=== PATIENT | male | born 1950 | race Caucasian/White ===

== ENCOUNTER 2022-08-11 12:23 | Emergency (ER) | payer OTHER, SELFPAY ==
--- NOTE | ~2022-08-11 | CT_ITS ---
EXAMINATION: CT brain wo con DATE: 08/11/2022 14:40 INDICATION: syncope, head injury . TECHNIQUE: Computed tomography (CT) of the head was performed without intravenous contrast. The mA wa s adjusted according to patient size. Iterative reconstruction technique was employed. The dose-lengt h product was 605.33 mGy-cm. COMPARISON: None. FINDINGS: No acute intracranial hemorrhage or extra-axial fluid collection. No hydrocephalus, mass, or herniation. No acute ischemic infarct. Unremarkable dural venous sinus attenuation. No acute osseous abnormality. Mild ethmoid mucosal thickening, poorly pneumatized mastoid air cells, bilateral mastoid effusions an d fluid in the right middle ear cavity, the remaining aerated spaces are clear. Mild atrophy and chronic white matter change. Atherosclerotic intracranial calcification. Bilateral l ens replacements. IMPRESSION: No acute intracranial process. Bilateral mastoid effusions. Right middle ear fluid. Correlate for cli nical findings of right otitis/otomastoiditis. Reviewed, dictated and finalized at location [facility]. SOFTWARE DEVELOPER IMPRESSION: No acute intracranial process. Bilateral mastoid effusions. Right middle ear fl uid. Correlate for clinical findings of right otitis/otomastoiditis.
--- NOTE | ~2022-08-11 | CT_ITS ---
EXAMINATION: CT abdomen pelvis w con DATE: 08/11/2022 14:40 INDICATION: Diarrhea. TECHNIQUE: Computed tomography (CT) of the abdomen and pelvis was performed with 100 CC Omnipaque 350 intravenous contrast. Automated exposure control and iterative reconstruction technique were employe d. Exam dose: 1154.52 mGy-cm total exam DLP. COMPARISON: None. FINDINGS: Minimal atelectasis at the lung bases. Normal heart size. No pericardial or pleural effusio n. Small sliding hiatal hernia. The liver, gallbladder, spleen, pancreas, and adrenal glands are unremarkable. 4 mm right renal cyst 4.5 mm upper pole left renal cyst. No urinary tract calculus or hydroureteronephrosis. Prostate enlar gement and calcification. The urinary bladder appears unremarkable. There is atherosclerotic calcification but normal caliber of the abdominal aorta and iliac arteries. No intraperitoneal or retroperitoneal or pelvic mass lesion or adenopathy or ascites. Normal appendix. Mild colon diverticulosis; no CT evidence of diverticulitis. No bowel obstruction or bowel wall thickening, pneumatosis or intraperitoneal free air. Moderately severe degenerative disc disease and mild retrolisthesis at L5-S1. Degenerative changes apophyseal joints with associated grade 1 anterolisthesis at L4-5. Severe degenerative disc disease and mild retrolisthesis at L1-2. Degenerative change of the lower thoracic spine. No suspicious osteolytic or osteoblastic lesions are noted. IMPRESSION: Normal appendix Mild diverticulosis of the colon Small sliding hiatal hernia Small renal cysts Prostate enlargement and calcification Reviewed, dictated and finalized at [facility]. Reviewed, dictated and finalized at location [facility]. RTISING SALES AGENT
--- NOTE | ~2022-08-11 | XR_ITS ---
XR chest 1V portable DATE: 08/11/2022 12:58 INDICATION: Dizziness, weakness. History of myocardial infarction. TECHNIQUE: Portable AP views on August 11, 2022 at 1255 hours COMPARISON: None FINDINGS: Normal heart size. No hilar or mediastinal enlargement. No pulmonary infiltrate or consolid ation, pleural effusion or pulmonary vascular congestion or pneumothorax. Degenerative spurring of the thoracic spine. IMPRESSION: No active cardiopulmonary disease Reviewed, dictated and finalized at location A. NE TRADER
[2022-08-11 12:27] VITALS: BP 141/67; PULSE 63; RESP 16; TEMP 36.8; O2SAT 100
--- NOTE | 2022-08-11 12:41 | ECG_ITS ---
Measurements Intervals [place] Rate: 66 P: 52 DC: 265 QRS: -82 QRSD: 97 T: 24 QT: 419 QTc: 441 Interpretive Statements SINUS RHYTHM WITH FIRST DEGREE AV BLOCK LEFTWaRD AXIS RV CONDUCTION ABNORMALITY POOR R-WAVE PROGRESSION ABNORMAL ECG NO PREVIOUS ECG AVAILABLE FOR COMPARISON Electronically Signed On 08-12-2022 7:09:14 [employer] WORK[employer] by Junior Sunshine M.D.
[2022-08-11 13:23] LABS: Basophils Percent Auto 0.3 % (0.2-1.2); Eosinophils Absolute Auto 0.1 K/mm3 (0-0.3); Eosinophils Percent Auto 0.8 % (0-4.4); Hematocrit 46.8 % (42.0-52.0); Hemoglobin 16.1 g/dL (14.0-18.0); Immature Granulocyte Absolute 0.04 K/mm3 (0.00-0.031); Immature Granulocyte Percent A 0.3 % (0-0.5); Lymphocytes Absolute Auto 1.16 K/mm3 (0.9-3.2); Lymphocytes Percent Auto 8.6 % (18.3-44.2); Mean Corpuscular HGB Conc 34.4 g/dl (32-36); Mean Corpuscular Hemoglobin 31.5 pg (26-34); Mean Corpuscular Volume 91.6 fl (80-100); Mean Platelet Volume 8.9 fl (7.4-10.4); Monocytes Percent Auto 7.2 % (2.6-8.5); Neutrophils Absolute Auto 11.2 K/mm3 (1.3-6.7); Neutrophils Percent Auto 82.8 % (45.5-73.1); Platelet Count Result 143 k/mm3 (150-375); Red Blood Count 5.11 M/mm3 (4.6-6.20); Red Cell Distribution Width 12.6 % (11.5-14.5); White Blood Count 13.6 K/mm3 (4.5-10.0)
[2022-08-11] MEDS: LACTATED RINGERS 1,000 ML 999 ML IV CONT (13:29)
[2022-08-11] MEDS: ONDANSETRON INJ 4 MG/2 ML VIAL IV PUSH (13:30)
[2022-08-11 13:33] LABS: Partial Thromboplastin Time 26.7 SECONDS (22.3-36.8); Prothrombin Time 13.1 Seconds (11.1-14.7)
[2022-08-11 13:34] LABS: Lactic Acid Reflex 1.4 mmol/L (0.7-2.0)
[2022-08-11 13:36] LABS: Alanine Aminotransferase 26 U/L (6-50); Albumin Level 4.6 g/dL (3.5-5.1); Alkaline Phosphatase 116 U/L (38-126); Anion Gap 4 mmol/L (8-16); Aspartate Amino Transferase 28 U/L (17-59); Bilirubin,Total 0.5 mg/dL (0.2-1.3); Blood Urea Nitrogen 14 mg/dL (9-20); Carbon Dioxide 29 mmol/L (22-30); Chloride 103 mmol/L (98-107); Estimated CRCL calculation 95 ml/min; Estimated Glomerular Filt Rate > 60; Glucose 114 mg/dL (65-110); Lipase 126 U/L (23-300); Magnesium 1.9 mg/dL (1.6-2.3); Potassium 3.6 mmol/L (3.4-5.0); Sodium 136 mmol/L (137-145)
--- NOTE | 2022-08-11 13:50 | ED.NAVMDI ---
HPI - Nausea/Vomiting/Diarrhea General Chief complaint: Nausea/Vomiting/Diarrhea Stated complaint: N/V/D zofran given by ems Time Seen by Provider: 08/11/22 12:32 Source: patient and RN notes reviewed Mode of arrival: EMS Limitations: no limitations History of Present Illness HPI Narrative: This is a 72 year old male with history of DM, hyperlipidemia, hypertension who presents from home for evaluation of syncope after nausea, vomiting and diarrhea. Patient's told his he felt fatigue this morning. Approximately 2 hours ago he was having bowel movement , and he developed dizziness, nausea and vomiting. He states that he has been having diarrhea afterwards. His found him on the bathroom floor because he passed out. EMS gave patient dose of zofran and patient continues to have nausea. He denies chest pain, sob. He reports some congestion. He denies history of cardiac disease or syncope. MD elicited complaint: nausea, vomiting and diarrhea Related Data Allergies Allergy/AdvReac Type Severity Reaction Status Date / Time No Known Allergies Allergy Verified 08/11/22 13:28 Review of Systems Constitutional: Constitutional: Reports weakness ENT: Reports nasal congestion Cardiovascular: Cardiovascular: Reports syncope, Denies rapid heart rate, Denies irregular heart rhythm, Denies leg edema and Denies dyspnea Respiratory: Respiratory: Denies chest congestion, Denies hemoptysis, Denies excessive phlegm production and Denies dyspnea Gastrointestinal: Gastrointestinal: Denies abdominal pain, Denies hematochezia, Reports diarrhea, Reports nausea and Reports vomiting Genitourinary: Genitourinary: Denies hematuria, Denies dysuria, Denies penile discharge and Denies testicular pain Musculoskeletal: Musculoskeletal: Denies joint swelling, Denies loss of height and Denies muscle weakness Neurologic: Reports syncope, Denies focal weakness and Denies weakness PMFSH Past Medical History Medical History (Updated 08/11/22 @ 16:40 by Geeta Franco MD) Amputation toe Diabetes mellitus type 2, controlled Enlarged prostate Hyperlipidemia Hypertension Social History Social History (Updated 08/11/22 @ 13:56 by Geeta Franco MD) Smoking packs per day: 1 Smoking cigarettes per day: 20.0 Smoking status: Current every day smoker Exam Const: General: no acute distress and alert Orientation/consciousness: patient oriented x3 Limitations: no limitations HENMT: Head: contusion (abrasion to midforehead) Teeth and gingiva: dentition normal Throat: posterior oropharynx normal Eyes: Conjunctivae: conjunctivae normal Neck: Neck: normal visual inspection Chest: Chest palpation & inspection: normal inspection of the chest Resp: Effort & Inspection: normal respiratory effort Auscultation: clear to auscultation bilaterally Cardio: Rate: regular rate Rhythm: regular rhythm Heart sounds: no murmurs GI: GI Palp: Yes Soft to palpation, No Tenderness to palpation present (GI), No Guarding due to palpation present (GI) and No Rigid due to palpation Auscultation: normal bowel sounds Skin: General skin exam: normal color Rashes: no rashes Wounds: no wounds Neuro: General: patient oriented x3, moves all extremities and CN's II-XI intact bilaterally Extrem: General: normal to inspection Psych: Mental Status: mental status grossly normal Affect: normal affect Attitude: cooperative Course Course Emergency Course: PAtient presented with syncopal episode with nausea and vomiting. EKG done, labs ordered which included cbc, cmp, magnesium , troponin. CT head and CT abdomen pelvis ordered due to patient with head injury and syncope. Patient had elevated wbc of 13k so CT abdomen and pelvis ordered to rule out acute infection, colitis. CT were unremarkable. electrolytes were normal, lactic acid normal. syncope likely vasovagal response. EKG is abnormal but he has EGSYS score of 2 and low risk for cardiac cau
[2022-08-11 13:55] LABS: Troponin I < 0.012 ng/mL (0.000-0.034)
[2022-08-11 13:58] LABS: Influenza A QL RT-PCR Negative (Negative); Influenza B QL RT-PCR Negative (Negative); SARS-CoV-2 RNA PCR Negative
[2022-08-11 14:57] VITALS: BP 131/68; BP 136/74; BP 142/75; PULSE 69; PULSE 71
[2022-08-11 15:08] LABS: Appearance Urine Clear (Clear); Bacteria Urine 4+ /hpf; Bilirubin Urine Negative (Negative); Blood Urine Negative (Negative); Color Urine Yellow (Yellow); Glucose Urine UA Negative (Negative); Ketones Urine Negative (Negative); Leukocyte Esterase Ur Trace LEU/UL (Negative); Nitrate Urine Negative (Negative); Protein Urine Negative (Negative); RBC Urine 0-2 /hpf (0-2); Specific Grav Ur 1.014 (1.001-1.035); Squamous Epithelial Cell Urine None seen /hpf (Few)
[2022-08-11 15:11] LABS: Add Urine Microscopic? YES
[2022-08-11 16:01] VITALS: BP 109/93; PULSE 74; RESP 18; O2SAT 100
[2022-08-11 16:57] VITALS: BP 124/71; PULSE 77; RESP 18; O2SAT 97
== END 2022-08-11 17:00 | disposition home or self-care (01) ==
PROVIDERS: Emergency Provider General Practice
DX: R55 Syncope and collapse (principal); K52.9 Noninfective gastroenteritis and colitis, unspecified; Z20.822 Contact with and (suspected) exposure to COVID-19; E11.9 Type 2 diabetes mellitus without complications; E78.5 Hyperlipidemia, unspecified; I10 Essential (primary) hypertension; N40.0 Benign prostatic hyperplasia without lower urinary tract symptoms; Z89.419 Acquired absence of unspecified great toe; F17.210 Nicotine dependence, cigarettes, uncomplicated; K57.90 Diverticulosis of intestine, part unspecified, without perforation or abscess without bleeding; K44.9 Diaphragmatic hernia without obstruction or gangrene; N28.1 Cyst of kidney, acquired; I44.0 Atrioventricular block, first degree; R94.31 Abnormal electrocardiogram [ECG] [EKG]
CPT/HCPCS: 36415; 70450; 71045; 74177; 80053; 81001; 83605; 83690; 83735; 84484; 85025; 85610; 85730; 87636; 93005; 96361; 96374; 99284; J2405; J7120; Q9967

== ENCOUNTER 2023-08-16 15:49 | Emergency (ER) | payer OTHER, SELFPAY ==
[2023-08-16 16:08] VITALS: BP 121/76; PULSE 76; RESP 16; TEMP 36.1; O2SAT 98
--- NOTE | 2023-08-16 16:50 | ED.URI ---
HPI - URI/Sore Throat General Chief Complaint: Upper Respiratory Infection Stated Complaint: Sinus Infection Symptoms Time Seen by Provider: 08/16/23 16:36 Source: patient and RN notes reviewed Mode of arrival: ambulatory Limitations: no limitations History of Present Illness HPI Narrative: Patient presents today complaining of 5 day history of cough, chills, body aches, diarrhea with a 4 day history of dry cough. Reports subjective fever at onset of symptoms but this quickly resolved. Denies shortness of breath. he has been taking Aleve with little relief. Per his pharmacy review, patient was started on doxycycline 100mg b.i.d. on 08/13/2023 by his departure clerk due to an infection in his toe. Related Data Home Medications Medication Instructions Recorded Confirmed amlodipine 10 mg tablet mg 08/16/23 atorvastatin 40 mg tablet mg 08/16/23 doxycycline hyclate 100 mg capsule mg 08/16/23 finasteride 5 mg tablet mg 08/16/23 furosemide 20 mg tablet mg 08/16/23 latanoprost 0.005 % eye drops drp 08/16/23 lisinopril 5 mg tablet mg 08/16/23 metoprolol succinate 100 mg mg PO 08/16/23 tablet,extended release 24 hr potassium chloride 20 mEq meq PO 08/16/23 tablet,extended release(part/cryst) (Klor-Con M) primidone 250 mg tablet mg 08/16/23 tamsulosin 0.4 mg capsule mg PO 08/16/23 timolol maleate 0.5 % eye drops drp 08/16/23 Allergies Allergy/AdvReac Type Severity Reaction Status Date / Time No Known Allergies Allergy Verified 08/16/23 16:44 Review of Systems Review of Systems: CONSTITUTIONAL: Denies sweats.+ fatigue, chills, body aches, subjective fever EYES: Denies visual changes, redness, or discharge. ENT: Denies rhinorrhea, congestion, sore throat, or otalgia. CARDIOVASCULAR: Denies chest pain, palpitations, or edema. RESPIRATORY: Denies dyspnea.+ dry cough GASTROINTESTINAL: Denies abdominal pain, nausea, vomiting.+ diarrhea GENITOURINARY: Denies dysuria or hematuria. SKIN: Denies rash, itching, or wounds. MUSCULOSKELETAL: Denies back pain, joint pain, or myalgia. NEUROLOGIC: Denies headache, numbness, tingling, or weakness. PSYCH: Denies depression or anxiety. [facility] Past Medical History Medical History Amputation toe Diabetes mellitus type 2, controlled Enlarged prostate Hyperlipidemia Hypertension Social History Social History Smoking packs per day: 1 Smoking cigarettes per day: 20.0 Smoking status: Current every day smoker Comments At time of signature, I have reviewed and agree with nursing past medical, surgical, social and family history unless otherwise noted. Please see nursing chart for further information. There is no relevant family history pertinent to the presenting complaint Exam Narrative: GENERAL: Mildly ill-appearing, well-nourished, and in no acute distress. HEAD: Normocephalic, atraumatic. EYES: EOMI. No redness or drainage. Conjunctivae normal. ENT: Mucous membranes pink and moist. Nares clear. No rhinorrhea. TMs normal bilaterally. Throat normal. Uvula midline. NECK: Normal AROM. Supple. No lymphadenopathy. CHEST: No respiratory distress. Clear to auscultation. HEART: Regular rate and rhythm. No murmur appreciated. EXTREMITIES: Normal range of motion. No edema. SKIN: Warm, dry, no rash. Capillary refill normal. Normal skin turgor. NEURO: No focal deficits. Alert and oriented x3. Gait steady. PSYCH: Normal affect. No signs of depression or anxiety. Course Course Level of Care: Express Care Visit Vital Signs Vital signs: Vital Signs Temperature 97 F L 08/16/23 16:08 Pulse Rate 76 08/16/23 16:08 Respiratory Rate 16 08/16/23 16:08 Blood Pressure 121/76 08/16/23 16:08 Pulse Oximetry 98 08/16/23 16:08 Temperature 97 F L 08/16/23 16:08 Pulse Rate 76 08/16/23 16:08 Respiratory Rate 16
== END 2023-08-16 16:56 | disposition home or self-care (01) ==
PROVIDERS: Emergency Provider Nurse Practitioner
DX: B34.9 Viral infection, unspecified (principal); Z20.822 Contact with and (suspected) exposure to COVID-19; F17.210 Nicotine dependence, cigarettes, uncomplicated; E11.9 Type 2 diabetes mellitus without complications; N40.0 Benign prostatic hyperplasia without lower urinary tract symptoms; E78.5 Hyperlipidemia, unspecified; I10 Essential (primary) hypertension
CPT/HCPCS: 87426; 87804; 99213; G0463

== ENCOUNTER 2023-09-12 17:02 | Emergency (ER) | payer OTHER, SELFPAY ==
[2023-09-12 17:05] VITALS: BP 144/69; PULSE 81; RESP 20; TEMP 36.5; O2SAT 98
--- NOTE | 2023-09-12 17:08 | ED.MALEGU ---
HPI - Male Genitourinary General Chief complaint: Urogenital-Male <Queenie Ruiz PA-C - Last Filed: 09/14/23 10:19> Stated complaint: unable to urinate <Queenie Ruiz PA-C - Last Filed: 09/14/23 10:19> Time Seen by Provider: 09/12/23 17:08 <Qeuenie Ruiz PA-C - Last Filed: 09/14/23 10:19> Focused HPI: This is a 73-year-old male that presents to the emergency department for difficulty urinating. Reports he had his Robison taken out at his urologist's office this morning. He is unable to urinate since. Reports history of prostate cancer. Denies fever or vomiting. GENERAL: Well-appearing, well-nourished, and in no acute distress. HEAD: Normocephalic, atraumatic. CHEST: Clear to auscultation. ?No respiratory distress. HEART: Regular rate and rhythm.? NEURO: ?Alert and oriented x3. Patient screened in triage and initial orders placed.? ?Additional care and disposition to be based upon?diagnostic testing and treatment. <Queenie Ruiz PA-C - Last Filed: 09/14/23 10:19> History of Present Illness HPI Narrative: 73-year-old male present to the emergency department for evaluation decreased urinary output. Patient did have a Robison catheter removed today at his urology office and has benign able to void since then. <Taurus Gayle MD - Last Filed: 09/12/23 22:10> Related Data Home medications: Home Medications Medication Instructions Recorded Confirmed amlodipine 10 mg tablet mg 08/16/23 atorvastatin 40 mg tablet mg 08/16/23 doxycycline hyclate 100 mg capsule mg 08/16/23 finasteride 5 mg tablet mg 08/16/23 furosemide 20 mg tablet mg 08/16/23 latanoprost 0.005 % eye drops drp 08/16/23 lisinopril 5 mg tablet mg 08/16/23 metoprolol succinate 100 mg mg PO 08/16/23 tablet,extended release 24 hr potassium chloride 20 mEq meq PO 08/16/23 tablet,extended release(part/cryst) (Klor-Con M) primidone 250 mg tablet mg 08/16/23 tamsulosin 0.4 mg capsule mg PO 08/16/23 timolol maleate 0.5 % eye drops drp 08/16/23 <Queenie Ruiz PA-C - Last Filed: 09/14/23 10:19> Allergies/Adverse reactions: Allergies Allergy/AdvReac Type Severity Reaction Status Date / Time No Known Allergies Allergy Verified 09/12/23 17:03 <Queenie Ruiz PA-C - Last Filed: 09/14/23 10:19> Review of Systems Review of Systems: All systems reviewed & are unremarkable except as noted in HPI and below <Taurus Gayle MD - Last Filed: 09/12/23 22:10> [facility] Past Medical History Medical History: Medical History Amputation toe Diabetes mellitus type 2, controlled Enlarged prostate Hyperlipidemia Hypertension <Queenie Ruiz PA-C - Last Filed: 09/14/23 10:19> Social History Social History: Social History Smoking packs per day: 1 Smoking cigarettes per day: 20.0 Smoking status: Current every day smoker <Queenie Ruiz PA-C - Last Filed: 09/14/23 10:19> Exam Narrative: APPEARANCE: Well appearing, no pain, no distress, well-nourished. HEAD: normocephalic, atraumatic. EYES: PERRLA/EOMI, conjunctivae clear. NOSE: Normal no drainage NECK: Supple. No adenopathy, no masses. RESPIRATORY: Airway patent, respirations nonlabored. Clear to auscultation bilaterally, no rales, rhonchi, wheezing. CARDIOVASCULAR: Regular rate and rhythm without murmurs rubs or gallops. ABDOMINAL: Soft, nontender, nondistended, normal bowel sounds MUSCULOSKELETAL: Moves all extremities. Strength/ROM intact, No edema, No calf tenderness. NEURO: Alert. Cranial nerves II through XII intact. Good gait. Good coordination SKIN: Warm, dry. Normal Color <Taurus Gayle MD - Last Filed: 09/12/23 22:10> Course Vital Signs Vital signs: Vital Signs Temperature 97.7 F 09/12/23 17:05 Pulse Rate 81 09/12/23 17:05 Respiratory Rate 20 09/12/23 17:05
[2023-09-12 18:58] VITALS: BP 141/83; PULSE 85; RESP 20; O2SAT 97
== END 2023-09-12 18:59 | disposition home or self-care (01) ==
PROVIDERS: Emergency Provider Emergency Medicine
DX: N40.1 Benign prostatic hyperplasia with lower urinary tract symptoms (principal); R33.8 Other retention of urine; E11.9 Type 2 diabetes mellitus without complications; E78.5 Hyperlipidemia, unspecified; I10 Essential (primary) hypertension; Z89.429 Acquired absence of other toe(s), unspecified side; F17.210 Nicotine dependence, cigarettes, uncomplicated
CPT/HCPCS: 51702; 99283